=== PATIENT | female | born 1960 | race Caucasian/White ===

== ENCOUNTER 2022-11-01 08:55 | Outpatient (CLI) | payer OTHER | END 2022-11-01 08:56 | disposition home or self-care (01) | LOC: CSHRAD 08:55 | PROVIDERS: ATTEND Orthopaedic Surgery | DX: M54.50 Low back pain, unspecified (principal); M54.2 Cervicalgia; Z98.890 Other specified postprocedural states; M47.816 Spondylosis without myelopathy or radiculopathy, lumbar region; M47.812 Spondylosis without myelopathy or radiculopathy, cervical region | CPT/HCPCS: 72040; 72100 ==

== ENCOUNTER 2022-12-31 12:00 | Inpatient (IN) | payer OTHER ==
[2023-01-01 12:54] VITALS: BMI 40.3
[2023-01-11] MEDS ORDERED: Rocuronium Bromide 10 MG/ML (10ML VIAL) ONE (06:22)
[2023-01-11] MEDS ORDERED: PROPOFOL 20 ML ONE (06:22)
[2023-01-11] MEDS ORDERED: Dexamethasone 20 MG/5 ML VIAL ONE (06:22)
[2023-01-11] MEDS ORDERED: Midazolam HCl 2 mg/2 ml Vial ONE (06:22)
[2023-01-11] MEDS ORDERED: Lidocaine 1% PF 5 ML VIAL ONE (06:22)
[2023-01-11] MEDS ORDERED: Fentanyl 250 MCG/5 ML VIAL ONE (06:22)
[2023-01-11] MEDS ORDERED: Ondansetron PF 4 MG/2 ML Vial ONE (06:22)
[2023-01-11] MEDS ORDERED: Bupivacaine 0.25% HCL 30 ML VIAL ONE (06:26)
[2023-01-11] MEDS ORDERED: EPINEPHrine 1 MG/ML VIAL ONE (06:26)
[2023-01-11] MEDS ORDERED: CEFAZOLIN 2 GM VIAL ONE (06:27)
[2023-01-11] MEDS ORDERED: Famotidine/PF 20 mg/2ml Vial ONE (06:41)
[2023-01-11] MEDS ORDERED: PHENYLEPHRINE-NS 100 MCG/ML 10 ML SYRINGE ONE (07:23)
[2023-01-11] MEDS ORDERED: fentaNYL 50 mcg/mL 1 mL Vial ONE (10:23)
[2023-01-11] MEDS ORDERED: Morphine 4 MG/ML VIAL SLOW IVP PRN (11:42)
[2023-01-11] MEDS ORDERED: traMADol HCl 50 MG TAB PO PRN (11:42)
[2023-01-11] MEDS ORDERED: TETANUS, DIPHTHERIA TOX,ADULT (TDVAX) 0.5 ML VIAL IM ONE (11:42)
[2023-01-11] MEDS ORDERED: Acetaminophen 325 MG TAB PO PRN (11:42)
[2023-01-11] MEDS ORDERED: Communication Order-Pharmacy FS PRN (11:45)
[2023-01-11] MEDS ORDERED: CEFAZOLIN 1 GM VIAL ONE (11:53)
[2023-01-11] MEDS ORDERED: HYDROmorphone 0.5 MG/0.5 ML SYRINGE ONE (12:15)
[2023-01-11] MEDS: HYDROcodone/Acetaminophen 10/325 mg Tablet PO PRN (18:32)
[2023-01-11] MEDS: Aspirin 81 mg Enteric Coated Tablet PO SCH (20:21)
[2023-01-11] MEDS: CEFAZOLIN 2 GM in Sodium Chloride 0.9% 100 ML IVPB SCH (20:21)
[2023-01-11] MEDS ORDERED: Rosuvastatin 20 MG TAB PO SCH (21:00)
[2023-01-12] MEDS: CEFAZOLIN 2 GM in Sodium Chloride 0.9% 100 ML IVPB SCH (04:49)
[2023-01-12] MEDS: HYDROcodone/Acetaminophen 10/325 mg Tablet PO PRN (06:06)
[2023-01-12] MEDS: Aspirin 81 mg Enteric Coated Tablet PO SCH (08:50)
[2023-01-12] MEDS ORDERED: Alogliptin 25 MG TAB PO SCH (09:00)
[2023-01-12] MEDS ORDERED: DULoxetine 30 MG CAP PO SCH (09:00)
[2023-01-12] MEDS ORDERED: Lisinopril 5 MG TAB PO SCH (09:00)
[2023-01-12 13:52] VITALS: BP 110/57; TEMP 98.7
== END 2023-01-12 13:30 | disposition home or self-care (01) | DRG 455 ==
LOC: CSHTELE 01-11 05:48
PROVIDERS: ADMIT Orthopaedic Surgery; ATTEND Orthopaedic Surgery
PROC: 0SG30AJ Fusion of Lumbosacral Joint with Interbody Fusion Device, Posterior Approach, Anterior Column, Open Approach (ICD-10-PCS; principal; 2023-01-11)
PROC: 01NB0ZZ Release Lumbar Nerve, Open Approach (ICD-10-PCS; 2023-01-11)
PROC: 0SG3071 Fusion of Lumbosacral Joint with Autologous Tissue Substitute, Posterior Approach, Posterior Column, Open Approach (ICD-10-PCS; 2023-01-11)
PROC: 4A11X4G Monitoring of Peripheral Nervous Electrical Activity, Intraoperative, External Approach (ICD-10-PCS; 2023-01-11)
DX: M54.17 Radiculopathy, lumbosacral region (principal); I10 Essential (primary) hypertension; E78.00 Pure hypercholesterolemia, unspecified; E11.9 Type 2 diabetes mellitus without complications; Z90.89 Acquired absence of other organs; Z98.890 Other specified postprocedural states; Z88.0 Allergy status to penicillin; Z88.5 Allergy status to narcotic agent; Z79.899 Other long term (current) drug therapy; M43.17 Spondylolisthesis, lumbosacral region
CPT/HCPCS: 36415; 72100; 86850; 86900; 86901; 94760; C1713; C1889; J0171; J0690; J1100; J1170; J2250; J2405; J2704; J3010; J3490; S0020; S0028

== ENCOUNTER 2023-01-01 12:21 | Outpatient (CLI) | payer OTHER ==
[2023-01-01 14:03] LABS: Hematocrit 43.3 % (34.9-44.5); Hemoglobin 14.6 g/dL (12.0-15.5); Mean Corpuscular HGB CONC 33.7 g/dL (32.0-36.0); Mean Corpuscular Hemoglobin 31.5 pg (27.0-33.0); Mean Corpuscular Volume 93.3 fl (81.6-98.3); Mean Platelet Volume 10.5 fl (7.4-10.4); Platelet Count 248 10x3/uL (150-450); RBC Distribution Width 12.7 % (11.5-14.5); Red Blood Cell (RBC) Count 4.64 10x6/uL (3.90-5.03); White Blood Cell (WBC) Count 9.7 10x3/uL (3.5-10.5)
[2023-01-01 14:30] LABS: Anion Gap 14 mmol/L (10-20); BUN (Urea Nitrogen) 23 mg/dL (9.8-20.1); Calc. Creatinine Clearance 0 mL/min (70-130); Calcium 9.1 mg/dL (7.8-10.44); Carbon Dioxide 23 mmol/L (23-31); Chloride 104 mmol/L (98-107); Estimated GFR 76; Glucose 104 mg/dL (80-115); Potassium 4.2 mmol/L (3.5-5.1); Sodium 137 mmol/L (136-145)
[2023-01-01 14:31] LABS: PTT 29.1 sec (22.0-33.0); Prothrombin Time 10.4 sec (9.5-12.1)
== END 2023-01-01 12:22 | disposition home or self-care (01) ==
LOC: CSHLAB 12:21
PROVIDERS: ATTEND Orthopaedic Surgery
DX: Z01.812 Encounter for preprocedural laboratory examination (principal); M54.50 Low back pain, unspecified; M54.17 Radiculopathy, lumbosacral region
CPT/HCPCS: 80048; 85027; 85610; 85730

== ENCOUNTER 2023-03-04 10:06 | Outpatient (CLI) | payer BC | END 2023-03-04 10:07 | disposition home or self-care (01) | LOC: CSHRAD 10:06 | PROVIDERS: ATTEND Orthopaedic Surgery | DX: M54.50 Low back pain, unspecified (principal); Z98.890 Other specified postprocedural states; M47.816 Spondylosis without myelopathy or radiculopathy, lumbar region | CPT/HCPCS: 72100 ==

== ENCOUNTER 2023-04-18 09:54 | Outpatient (CLI) | payer BC | END 2023-04-18 09:55 | disposition home or self-care (01) | LOC: CSHRAD 09:54 | PROVIDERS: ATTEND Orthopaedic Surgery | DX: M54.50 Low back pain, unspecified (principal); Z98.890 Other specified postprocedural states; M47.816 Spondylosis without myelopathy or radiculopathy, lumbar region | CPT/HCPCS: 72100 ==

== ENCOUNTER 2023-07-25 09:33 | Outpatient (CLI) | payer BC | END 2023-07-25 09:34 | disposition home or self-care (01) | LOC: CSHRAD 09:33 | PROVIDERS: ATTEND Orthopaedic Surgery | DX: M54.50 Low back pain, unspecified (principal); M46.1 Sacroiliitis, not elsewhere classified; Z98.890 Other specified postprocedural states; M47.818 Spondylosis without myelopathy or radiculopathy, sacral and sacrococcygeal region; M16.12 Unilateral primary osteoarthritis, left hip; M77.8 Other enthesopathies, not elsewhere classified | CPT/HCPCS: 72100; 72190 ==

== ENCOUNTER 2024-01-30 09:54 | Outpatient (CLI) | payer BC | END 2024-01-30 09:55 | disposition home or self-care (01) | LOC: CSHRAD 09:54 | PROVIDERS: ATTEND Orthopaedic Surgery | DX: M54.50 Low back pain, unspecified (principal); Z98.890 Other specified postprocedural states; M47.816 Spondylosis without myelopathy or radiculopathy, lumbar region | CPT/HCPCS: 72100 ==